=== PATIENT | female | born 2000 ===

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

== ENCOUNTER 2018-07-03 13:11 | Emergency (ER) | payer MEDICAID, OTHER ==
[2018-07-03 13:11] VITALS: BMI 22.6
[2018-07-03 13:18] VITALS: BP 131/83; PULSE 85; RESP 18; TEMP 98; O2SAT 99
[2018-07-03 14:22] LABS: SQUAMOUS EPITHIAL 10 /hpf (0-5); URINE BACTERIA RARE (<OCC); URINE BILIRUBIN NEGATIVE (NEGATIVE); URINE BLOOD LARGE (NEGATIVE); URINE CLARITY SLIGHTY-CLOUDY (Clear); URINE COLOR YELLOW (YELLOW); URINE GLUCOSE (UA) NEG (NEGATIVE); URINE LEUKOCYTE ESTERASE NEG Leu/uL (Negative); URINE PROTEIN 100 mg/dL (NEGATIVE); URINE UROBILINOGEN 0.2-1.0 mg/dL (0.2-1.0)
--- NOTE | 2018-07-03 14:39 | ED PDOC ---
HPI: Female Pain Time Seen by Provider: 07/03/18 13:26 Chief Complaint (Nursing): Female Genitourinary Chief Complaint (Provider): Female Genitourinary History Per: Patient History/Exam Limitations: no limitations Onset/Duration Of Symptoms: Days (x 1) Current Symptoms Are (Timing): Still Present Quality Of Discomfort: Cramping, "Pain" Associated Symptoms: Urinary Symptoms (dysuria and hematuria) Additional Complaint(s): 17 year old female presents to the ED for evaluation of a burning sensation during urination associated with blood in her urine and lower abdominal cramping. 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 She states that she is not concerned for STDs and is only sexually active with one partner. Patient admits to a history of urinary tract infections with similar symptoms. Her LMP was 06/13/2018. Otherwise: (-) fever, (-) chills, (-) back pain, (-) nausea/vomiting, (-) vaginal discharge or bleeding. PMD: Dr. Favio uBtt Abnormal Vaginal Bleeding: No Last Menstral Period: 06/13/2018 Past Medical History Reviewed: Historical Data, Nursing Documentation, Vital Signs Vital Signs: Last Vital Signs Temp 98 F 07/03/18 13:16 Pulse 85 07/03/18 13:16 Resp 18 07/03/18 13:16 BP 131/83 07/03/18 13:16 Pulse Ox 99 07/03/18 13:16 - Medical History PMH: No Chronic Diseases - Surgical History Surgical History: No Surg Hx - Family History Family History: States: Unknown Family Hx - Social History Current smoker - smoking cessation education provided: No Alcohol: None Drugs: Denies - Home Medications Home Medications: Ambulatory Orders Medication Instructions Recorded Ibuprofen [Motrin] 400 mg PO QID PRN #100 ml 12/14/13 Ibuprofen [Motrin] 600 mg PO Q6H PRN #20 tab 02/05/16 Oseltamivir Cap [Tamiflu] 75 mg PO BID #10 cap 08/14/17 Naproxen 500 mg PO BID PRN #20 tab 07/03/18 Nitrofurantoin Macrocrystals 100 mg PO BID #14 cap 07/03/18 [Macrobid] Phenazopyridine [Phenazopyridine 100 mg PO BID PRN #4 tab 07/03/18 HCl] - Allergies Allergies/Adverse Reactions: Allergies Allergy/AdvReac Type Severity Reaction Status Date / Time No Known Allergies Allergy Verified 08/14/17 18:42 Review of Systems ROS Statement: Except As Marked, All Systems Reviewed And Found Negative Constitutional: Negative for: Fever, Chills Gastrointestinal: Positive for: Abdominal Pain (cramping). Negative for: Nausea, Vomiting Genitourinary Female: Positive for: Dysuria, Hematuria. Negative for: Frequency, Vaginal Discharge, Vaginal Bleeding Physical Exam - Reviewed Nursing Documentation Reviewed: Yes Vital Signs Reviewed: Yes - Physical Exam Comments: GENERAL APPEARANCE: Patient is awake, alert, oriented x 3, in no acute distress. Resting comfortably, nontoxic appearing. SKIN: Warm, dry; (-) cyanosis. EYES: (-) conjunctival injection ENMT: Mucous membranes moist. Airway patent: (-) stridor. NECK: Supple, FROM CHEST AND RESPIRATORY: (-) wheezing; (-) rales, (-) rhonchi; breath sounds equal bilaterally. Respirations even and nonlabored. HEART AND CARDIOVASCULAR: regular rate and rhythm ABDOMEN AND GI: Soft; (+) mild suprapubic tenderness (-) CVA tenderness. BACK: (-) midline tenderness EXTREMITIES: (-) deformity NEURO AND PSYCH: Mental status as above; (-) focal findings. Gait: steady. Speech: clear. (-) facial asymmetry - Laboratory Results Lab Results: Urine Color Yellow (YELLOW) 07/03/18 13:47 Urine Clarity Slighty-cloudy (Clear) 07/03/18 13:47 Urine pH 8.0 (5.0-8.0) 07/03/18 13:47 Ur Specific [place] 1.011 (1.003-1.030) 07/03/18 13:47 Urine Protein 100 mg/dL (NEGATIVE) 07/03/18 13:47 Urine Glucose (UA) Neg mg/dL (NEGATIVE) 07/03/18 13:47 Urine Ketones Trace mg/dL (NEGATIVE) 07/03/18 13:47 Urine Blood Large (NEGATIVE) 07/03/18 13:47 Urine Nitrate Negative (NEGATIVE) 07/03/18 13:47 Urine Bilirubin Negative (NEGATIVE) 07/03/18 13:47 Urine Urobilinogen 0.2-1.0 mg/dL (0.2-1.0) 07/03/18 13:47 Ur Leukocyte Esterase Neg Pat/uL (Negative) 07/03/18 13:47 Urine RBC (Auto) 456 /hpf (0-3) H 07/03/18 13:47 Ur Squamous Epith Cells 10 /hpf (0-5) H 07/03/18 13:47 Urine Bacteria Rare (<OCC) 07/03/18 13:47 Urine POC: Negative - ECG O2 Sat by Pulse Oximetry: 99 (RA) Pulse Ox Interpretation: Normal Medical Decision Making Medical Decision Makin:25 Impression: dysuria and hematuria, probable UTI. Initial Plan: --Urine preg --Chlamydia/ GC RNA --Pyridium 200 mg PO --Urine dip --UA 1425 U/A reviewed. Macrobid 100 mg PO ordered. On re-evaluation, patient resting comfortably with no additional complaints. Diagnostics discussed with demonstrated understanding. Patient is in agreement with plan for discharge. Vitals stable. Advised to follow up with PMD in 1-2 days without fail and to return to ED with any new or worsening symptoms. All questions answered at this time. Scribe Attestation: Documented by Sayra Briones acting as a scribe for Pippa Saunders PA-C, MD Scribe Attestation: All medical record entries made by the Scribe were at my direction and personally dictated by me. I have reviewed the chart and agree that the record accurately reflects my personal performance of the history, physical exam, medical decision making, and the department course for this patient. I have also personally directed, reviewed, and agree with the discharge instructions and disposition. Disposition - Clinical Impression Clinical Impression: Urinary tract infection, Hematuria - Patient ED Disposition Is Patient to be Admitted: No - Disposition Referrals: primary, doctor [Other] your, OBGYN [Other] [facility] [Outside] Disposition: Routine/Home Disposition Time: 14:25 Condition: STABLE Additional Instructions: The emergency medical care you received today was directed at your acute symptoms. If you were prescribed any medication, please fill it and take as directed. It may take several days for your symptoms to resolve. Return to the Emergency Department if your symptoms worsen, do not improve, or if you have any other problems. Please contact your doctor in 2 days for re-evaluation and follow up / or call one of the physicians/clinics you have been referred to that are listed on the Patient Visit Information form that is included in your discharge packet. Bring any paperwork you were given at discharge with you along with any medications you are taking to your follow up visit. Our treatment cannot replace ongoing medical care by a primary care provider (PCP) outside of the emergency department. Prescriptions: Naproxen 500 mg PO BID PRN #20 tab PRN Reason: Pain, Moderate (4-7) Nitrofurantoin Macrocrystals [Macrobid] 100 mg PO BID #14 cap Phenazopyridine [Phenazopyridine HCl] 100 mg PO BID PRN #4 tab PRN Reason: urinary discomfort Instructions: Urinary Tract Infections in Adults, Blood in the Urine (Hematuria), Adult (DC) Forms: [employer] (Bangladeshi) Print Language: AUSTRALIAN - POA Present On Arrival: None Results - Lab Results Lab Results: 07/03/18 13:47 Urine Color Yellow Urine Clarity Slighty-cloudy Urine pH 8.0 Ur Specific [place] 1.011 Urine Protein 100 Urine Glucose (UA) Neg Urine Ketones Trace Urine Blood Large Urine Nitrate Negative Urine Bilirubin Negative Urine Urobilinogen 0.2-1.0 Ur Leukocyte Esterase Neg Urine RBC (Auto) 456 H Ur Squamous Epith Cells 10 H Urine Bacteria Rare
== END 2018-07-03 14:55 | disposition home or self-care (01) ==
LOC: H.ER 13:11
DX: N39.0 Urinary tract infection, site not specified (principal); R31.9 Hematuria, unspecified